=== PATIENT | female | born 1965 | race Caucasian/White ===

== ENCOUNTER → 2017-09-11 | Outpatient (CLI) | payer SELFPAY ==
[2017-09-11 20:44] LABS: ANION GAP 7 MEQ/L (8-16); BLOOD UREA NITROGEN 19 MG/DL (7-18); CALCIUM LEVEL 9.3 MG/DL (8.5-10.1); CARBON DIOXIDE LEVEL 28 MEQ/L (21-32); CHLORIDE LEVEL 105 MEQ/L (98-107); CREATININE FOR GFR 0.88 MG/DL (0.55-1.02); GLOMERULAR FILTRATION RATE > 60.0 (>51); GLUCOSE, FASTING 91 MG/DL (70-105); POTASSIUM SERUM 4.3 MEQ/L (3.5-5.1); SODIUM LEVEL 140 MEQ/L (136-145)
== END ==
LOC: M WUC 16:17
DX: I10 Essential (primary) hypertension (principal)
CPT/HCPCS: 80048

== ENCOUNTER → 2018-12-06 | Outpatient (CLI) | payer BC ==
[2018-12-06 09:42] LABS: BASO # 0.1 10^3/uL (0.0-0.2); BASO % 0.7 % (0.0-1.0); EOS # 0.2 10^3/uL (0.0-0.50); EOS % 3.1 % (0.0-3.0); HEMATOCRIT 40.9 % (36.0-47.0); HEMOGLOBIN 13.8 g/dl (12.0-15.5); LYMPH # 2.8 10^3/uL (1.5-4.5); LYMPH % 39.1 % (24.0-44.0); MEAN CORPUSCULAR HEMOGLOBIN 29.6 pg (27.0-33.0); MEAN CORPUSCULAR HGB CONC 33.7 g/dl (32.0-36.5); MEAN CORPUSCULAR VOLUME 87.8 fl (80.0-96.0); MONO # 0.5 10^3/uL (0.0-0.8); MONO % 7.1 % (0.0-5.0); NEUTROPHILS # 3.5 10^3/uL (1.8-7.7); NEUTROPHILS % 49.7 % (36.0-66.0); PLATELET COUNT, AUTOMATED 342 10^3/uL (150-450); RED BLOOD COUNT 4.66 10^6/uL (4.00-5.40); WHITE BLOOD COUNT 7.1 10^3/uL (4.0-10.0)
[2018-12-06 10:18] LABS: ALBUMIN 4.2 GM/DL (3.2-5.2); ALT/SGPT 33 U/L (12-78); BILIRUBIN,TOTAL 0.5 MG/DL (0.2-1.0); BLOOD UREA NITROGEN 14 MG/DL (7-18); CALCIUM LEVEL 8.9 MG/DL (8.5-10.1); CARBON DIOXIDE LEVEL 28 MEQ/L (21-32); CHLORIDE LEVEL 108 MEQ/L (98-107); CHOLESTEROL LEVEL 259 MG/DL (<200); CHOLESTEROL RISK RATIO 7.194 (<5); CREATININE FOR GFR 0.93 MG/DL (0.55-1.30); GLOMERULAR FILTRATION RATE > 60.0 (>51); GLUCOSE, FASTING 94 MG/DL (70-100); HDL CHOLESTEROL 36 MG/DL (>40); LDL CHOLESTEROL 187 MG/DL (<100); NON-HDL-C 223 MG/DL; SODIUM LEVEL 141 MEQ/L (136-145); TOTAL PROTEIN 7.2 GM/DL (6.4-8.2); TRIGLYCERIDES LEVEL 182 MG/DL (<150)
== END ==
LOC: M WUC 08:21
PROVIDERS: ATTEND Family Medicine
DX: I10 Essential (primary) hypertension (principal)

== ENCOUNTER → 2019-03-06 | Outpatient (CLI) | payer BC ==
--- NOTE | 2019-03-07 01:11 | REP ---
Clinical: thoracic pain. Technique: AP, lateral, and swimmers views. Findings: Alignment and kyphosis is maintained. Vertebral bodies intact. No acute fracture / compression injury or subluxation. Very minimal age-related degenerative changes include subtle endplate sclerosis with minimal disc space narrowing and marginal spurring primarily involving the upper to mid thoracic spine. Impression: Mild age-related degenerative change. Electronically Signed by Silvio Truong MD 03/07/2019 01:03 A
== END ==
LOC: M WUC 11:23
PROVIDERS: ATTEND Physician Assistant
DX: M51.34 Other intervertebral disc degeneration, thoracic region (principal)

== ENCOUNTER → 2019-03-25 | Outpatient (CLI) | payer BC ==
--- NOTE | 2019-03-25 11:08 | REP ---
Diagnostic right breast mammogram: Spot magnification views in the retroareolar area are performed. On the spot magnification views three small nodule like structures are identified. On the ultrasound accompanying the diagnostic mammogram the three small nodular densities are all tiny fluid-filled cysts. In addition there is a dilated retroareolar duct. Impression: BIRADS/ACR category II benign findings. Recommendation: Follow-up screening mammogram in 1 year. A. Negative mammogram / ultrasound reports should not delay biopsy if a dominant or clinically suspicious mass is present. B. Not all breast cancers are identified by ultrasound, mammography or tomosynthesis. C. Adenosis and dense breasts may obscure an underlying neoplasm. Patient letter M1. Electronically Signed by Huy Mabry MD 03/25/2019 10:59 A
--- NOTE | 2019-03-25 17:04 | REP ---
Right breast ultrasound: The study is correlated with the diagnostic spot compression mammogram views of the right breast in this same date. Ultrasonography in the retroareolar area in the right breast identifies: a cyst measuring 3.6 x 3.2 x 3.5 mm, a cyst measuring 3.0 x 1.7 x 2.0 mm . and a cyst measuring 3.6 x 1.6 x 3.4 mm. In addition, retroareolar dilated ducts are identified. No solid nodules or masses are identified. Impression: BIRADS category 1 negative right breast ultrasound. There is no evidence of malignancy. Routine follow-up annual screening mammography is recommended. Electronically Signed by Huy Mabry MD 03/25/2019 04:57 P
== END ==
LOC: M RAD 09:56
PROVIDERS: ATTEND Nurse Practitioner Women's Health
DX: R92.2 Inconclusive mammogram (principal)

== ENCOUNTER → 2019-06-11 | Outpatient (CLI) | payer BC ==
[2019-06-11 10:48] LABS: ALBUMIN 4.1 GM/DL (3.2-5.2); ALT/SGPT 58 U/L (12-78); BILIRUBIN,TOTAL 0.5 MG/DL (0.2-1.0); BLOOD UREA NITROGEN 15 MG/DL (7-18); CALCIUM LEVEL 9.3 MG/DL (8.5-10.1); CARBON DIOXIDE LEVEL 27 MEQ/L (21-32); CHLORIDE LEVEL 107 MEQ/L (98-107); CHOLESTEROL LEVEL 249 MG/DL (<200); CHOLESTEROL RISK RATIO 7.114 (<5); CREATININE FOR GFR 0.83 MG/DL (0.55-1.30); GLOMERULAR FILTRATION RATE > 60.0 (>51); GLUCOSE, FASTING 91 MG/DL (70-100); HDL CHOLESTEROL 35 MG/DL (>40); LDL CHOLESTEROL 155 MG/DL (<100); NON-HDL-C 214 MG/DL; POTASSIUM SERUM 4.2 MEQ/L (3.5-5.1); SODIUM LEVEL 141 MEQ/L (136-145); TOTAL PROTEIN 6.9 GM/DL (6.4-8.2); TRIGLYCERIDES LEVEL 293 MG/DL (<150)
== END ==
LOC: M WUC 08:03
PROVIDERS: ATTEND Family Medicine
DX: E78.5 Hyperlipidemia, unspecified (principal); J02.9 Acute pharyngitis, unspecified

== ENCOUNTER → 2019-07-22 | Outpatient (CLI) | payer BC ==
--- NOTE | 2019-07-22 09:58 | REP ---
Clinical: thoracic back pain. Technique: AP, lateral, and swimmers views. Findings: Alignment and kyphosis is maintained. Vertebral bodies intact. No acute fracture / compression injury or subluxation. No significant degenerative changes. Paravertebral soft tissues are normal. Impression: Normal age-appropriate thoracic spine series. Electronically Signed by Silvio Truong MD 07/22/2019 09:49 A
[2019-07-23 10:04] LABS: HEPATITIS A ANTIBODY IGM NEGATIVE (NEGATIVE); HEPATITIS B CORE ANTIBODY IGM NEGATIVE (NEGATIVE); HEPATITIS B SURFACE ANTIGEN NEGATIVE (NEGATIVE); HEPATITIS C VIRUS ABY INDEX 0.1 INDEX (<0.8)
== END ==
LOC: M WUC 09:04
PROVIDERS: ATTEND Registered Nurse
DX: M54.9 Dorsalgia, unspecified (principal); R74.8 Abnormal levels of other serum enzymes

== ENCOUNTER → 2019-09-16 | Outpatient (REF) | payer BC ==
[2019-09-16 13:23] LABS: AMORPHOUS SEDIMENT SMALL (NEGATIVE); APPEARANCE, URINE TURBID (CLEAR); BACTERIA, URINE AUTO NEGATIVE (NEGATIVE); BILIRUBIN, URINE AUTO NEGATIVE (NEGATIVE); BLOOD, URINE BLOOD 1+ (NEGATIVE); COLOR, URINE AMBER (YELLOW); GLUCOSE, URINE (UA) AUTO NEGATIVE (NEGATIVE); KETONE, URINE AUTO NEGATIVE (NEGATIVE); LEUKOCYTE ESTERASE, URINE AUTO TRACE (NEGATIVE); NITRITE, URINE AUTO NEGATIVE (NEGATIVE); PROTEIN, URINE AUTO NEGATIVE (NEGATIVE); RBC, URINE AUTO 1 /HPF (0-3); SQUAMOUS EPITHELIAL CELL UR AU 1 /HPF (0-6); UROBILINOGEN, URINE AUTO 0.2 mg/dL (0.0-2.0); WBC, URINE AUTO 2 /HPF (0-3)
== END ==
LOC: M LAB REF 12:45
PROVIDERS: ATTEND Registered Nurse
DX: R10.11 Right upper quadrant pain (principal); R94.5 Abnormal results of liver function studies

== ENCOUNTER → 2019-10-31 | Outpatient (CLI) | payer BC ==
--- NOTE | 2019-10-31 14:48 | REP ---
PELVIC SONOGRAPHY: HISTORY: Pelvic pain. The patient status post recent left nephrectomy. Remote prior hysterectomy. FINDINGS: Transabdominal scanning demonstrates smooth bladder mendoza. Uterus is surgically absent.. Neither ovary was visualized transabdominally or transvaginally. Peristalsing bowel loops are seen in the pelvis. No free fluid is noted. IMPRESSION: Negative pelvic sonography post hysterectomy. Neither ovary could be directly visualized.
== END ==
LOC: M WHC 10:14
PROVIDERS: ATTEND Nurse Practitioner Women's Health
DX: R10.2 Pelvic and perineal pain (principal); Z90.711 Acquired absence of uterus with remaining cervical stump

== ENCOUNTER → 2020-02-16 | Outpatient (CLI) | payer BC ==
[~2020-02-16] MED LIST: COLE625TAB PO; CYMB1CAP5 PO; ENAL5TA PO; GABA-845 PO; HYDR25TAB PO
== END ==
LOC: M LABSMTC 10:45
PROVIDERS: ATTEND Anesthesiology
DX: Z03.818 Encounter for observation for suspected exposure to other biological agents ruled out (principal); Z11.59 Encounter for screening for other viral diseases
CPT/HCPCS: C9803; U0003

== ENCOUNTER 2020-02-19 12:53 | Day surgery (SDC) | payer BC ==
[~2020-02-19] VITALS: Ht 157.5 cm; Wt 79.4 kg
[~2020-02-19 12:53] MED LIST changes: -ENAL5TA PO; +ENAL5TAB PO
[2020-02-19] MEDS ORDERED: NS 1,000 ML IV ONE (14:00)
[2020-02-19] MEDS ORDERED: propofoL 200 MG/20 ML VIAL As Ordered ONE (14:28)
[2020-02-19] MEDS ORDERED: LIDOCAINE 2% 100MG/5ML SDV (FOR ANES.) As Ordered ONE (14:28)
--- NOTE | 2020-02-19 15:04 | ROOR ---
Patient Name: Shahida Low Procedure Date: 02/19/2020 2:24 PM Date of : 1965 Age: 54 Room: [facility] Gender: Female Note Status: Finalized Procedure: Colonoscopy Indications: Screening for colon cancer: Family history of colorectal cancer in distant relative(s) 60 or older Providers: Claude Mohr MD Referring MD: Kanwal Sood, [facility], Admin. Requesting Provider: Medicines: Monitored Anesthesia Care Complications: No immediate complications. Procedure: Pre-Anesthesia Assessment: - Prior to the procedure, a History and Physical was performed, and patient medications and allergies were reviewed. The patient is competent. The risks and benefits of the procedure and the sedation options and risks were discussed with the patient. All questions were answered and informed consent was obtained. Patient identification and proposed procedure were verified by the physician, the nurse and the anesthesiologist in the procedure room. Mental Status Examination: alert and oriented. Airway Examination: normal oropharyngeal airway and neck mobility. Respiratory Examination: clear to auscultation. CV Examination: normal. Prophylactic Antibiotics: The patient does not require prophylactic antibiotics. Prior Anticoagulants: The patient has taken no previous anticoagulant or antiplatelet agents. ASA Grade Assessment: II - A patient with mild systemic disease. After reviewing the risks and benefits, the patient was deemed in satisfactory condition to undergo the procedure. The anesthesia plan was to use monitored anesthesia care (MAC). Immediately prior to administration of medications, the patient was re-assessed for adequacy to receive sedatives. The heart rate, respiratory rate, oxygen saturations, blood pressure, adequacy of pulmonary ventilation, and response to care were monitored throughout the procedure. The physical status of the patient was re-assessed after the procedure. The Colonoscope was introduced through the anus and advanced to the terminal ileum, with identification of the appendiceal orifice and IC valve. The colonoscopy was performed without difficulty. The patient tolerated the procedure well. The quality of the bowel preparation was adequate to identify polyps 6 mm and larger in size. The terminal ileum, ileocecal valve, appendiceal orifice, and rectum were photographed. Scope insertion time was 3 minutes. Scope withdrawal time was 10 minutes. The total duration of the procedure was 15 minutes. Findings: The perianal and digital rectal examinations were normal. The terminal ileum appeared normal. A 12 mm polyp was found in the ascending colon. The polyp was multi-lobulated and sessile. The polyp was removed with a hot snare. Resection and retrieval were complete. Verification of patient identification for the specimen was done by the physician and nurse using the patient's name, date and medical record number. Estimated blood loss was minimal. Multiple small and large-mouthed diverticula were found in the sigmoid colon. There was no evidence of diverticular bleeding. Non-bleeding external and internal hemorrhoids were found during retroflexion. The hemorrhoids were medium-sized. Impression: - The examined portion of the ileum was normal. - One 12 mm polyp in the ascending colon, removed with a hot snare. Resected and retrieved. - Moderate diverticulosis in the sigmoid colon. There was no evidence of diverticular bleeding. - Non-bleeding external and internal hemorrhoids. Recommendation: - Patient has a contact number available for emergencies. The signs and symptoms of potential delayed complications were discussed with the patient. Return to normal activities tomorrow. Written discharge instructions were provided to the patient. - High fiber diet. - Continue present medications. - Await pathology results. - Repeat colonoscopy in 3 - 5 years for surveillance based on pathology results. - Telephone GI clinic for pathology results in 2 weeks. - Return to primary care physician. Claude Mohr MD Claude Mohr MD 02/19/2020 3:03:22 PM Electronically signed by Claude oMhr MD Number of Addenda: 0 Note Initiated On: 02/19/2020 2:24 PM Estimated Blood Loss: Estimated blood loss was minimal.
[2020-02-19 15:15] VITALS: BP 144/94
== END 2020-02-19 14:26 | disposition home or self-care (01) ==
LOC: M OPP 12:53
PROVIDERS: ATTEND Internal Medicine Gastroenterology
DX: Z12.11 Encounter for screening for malignant neoplasm of colon (principal); Z80.0 Family history of malignant neoplasm of digestive organs; D12.2 Benign neoplasm of ascending colon; K64.8 Other hemorrhoids; K57.30 Diverticulosis of large intestine without perforation or abscess without bleeding; Z79.899 Other long term (current) drug therapy; Z85.528 Personal history of other malignant neoplasm of kidney

== ENCOUNTER → 2020-03-16 | Outpatient (CLI) | payer BC ==
[~2020-03-16] MED LIST changes: +ENAL5TA PO; -ENAL5TAB PO
--- NOTE | 2020-03-16 09:00 | REP ---
Clinical: Renal malignancy. Technique: PA and lateral. Comparison: None. Findings: Mediastinum and cardiac silhouette are normal. Lung lucas demonstrate chronic-appearing interstitial changes primarily involving the bilateral bases. No discrete focal consolidation, effusion, or pneumothorax. Skeletal structures are intact. Impression: No focal consolidation. Electronically Signed by Silvio Truong MD 03/16/2020 08:52 A
== END ==
LOC: M WUC 08:22
PROVIDERS: ATTEND Urology
DX: C64.2 Malignant neoplasm of left kidney, except renal pelvis (principal)

== ENCOUNTER → 2020-04-02 | Outpatient (REF) | payer BC ==
[2020-05-03 10:59] LABS: DRVV SCREEN 53.1 SEC; PTT LUPUS TYPE ANTICOAG SCREEN 1.3 (0-1.2)
[2020-05-03 11:00] LABS: DRVV CONFIRM 41.7 SEC; LUPUS CONFIRM RATIO 1.1; NORMALIZED RATIO 1.18 (0.00-1.20)
[2020-05-19 06:37] LABS: ALBUMIN 4.2 GM/DL (3.2-5.2); ALT/SGPT 82 U/L (12-78); BILIRUBIN,TOTAL 0.5 MG/DL (0.2-1.0); BLOOD UREA NITROGEN 26 MG/DL (7-18); CALCIUM LEVEL 9.3 MG/DL (8.5-10.1); CARBON DIOXIDE LEVEL 29 MEQ/L (21-32); CHLORIDE LEVEL 107 MEQ/L (98-107); CREATININE FOR GFR 1.37 MG/DL (0.55-1.30); GLOMERULAR FILTRATION RATE 42.8 (>51); GLUCOSE, FASTING 89 MG/DL (70-100); POTASSIUM SERUM 3.8 MEQ/L (3.5-5.1); RHEUMATOID FACTOR QUANT < 10.0 IU/ML (<15.0); SODIUM LEVEL 141 MEQ/L (136-145); TOTAL PROTEIN 7.6 GM/DL (6.4-8.2)
[2020-05-31 06:50] LABS: ANTINUCLEAR ANTIBODIES DIRECT See Separate Report
== END ==
LOC: M LABWUC 13:45
PROVIDERS: ATTEND Psychiatry & Neurology Neurology
DX: M54.14 Radiculopathy, thoracic region (principal)

== ENCOUNTER → 2020-04-19 | Outpatient (CLI) | payer BC ==
[~2020-04-19] MED LIST changes: +E-Z-GAS II EFFERVESCENT PACKET (SODIUM BICARB./CITRIC ACID/SIMETHICONE) As Ordered ONE; +E-Z-HD 98% w/w 340GM SUSP BTL As Ordered ONE; +E-Z-PAQUE 96% w/w SUSP 176GM BTL As Ordered ONE
--- NOTE | 2020-05-19 08:49 | REP ---
ESOPHAGRAM AIR CONTRAST The procedure was performed under the direct supervision of Dr. Roldan. The images were reviewed with Dr. Roldan. A single view PA chest x-ray is submitted as a row boss hoeing film. The superior mediastinal structures are midline. The heart size is within normal limits. There is bibasilar linear fibrosis. Liquid barium and gas-producing granules were given in the erect position, as well as liquid barium in the prone oblique positions in order to perform a double-contrast esophagram examination. The oral and pharyngeal stages of deglutition are unremarkable. During esophageal transport, there are tertiary waves demonstrated. There is no esophagitis, stricture, mucosal ring, or hiatal hernia. There is gastroesophageal reflux demonstrated to the level of the vickey. IMPRESSION: * Tertiary waves. * There is gastroesophageal reflux demonstrated to the level of the vickey. 0.6 minutes of fluoroscopy time was utilized for this procedure. [facility]
== END ==
LOC: M RAD 07:00
PROVIDERS: ATTEND Specialist
DX: K21.9 Gastro-esophageal reflux disease without esophagitis (principal)

== ENCOUNTER → 2020-04-22 | Outpatient (CLI) | payer BC ==
[~2020-04-22] MED LIST changes: -E-Z-GAS II EFFERVESCENT PACKET (SODIUM BICARB./CITRIC ACID/SIMETHICONE) As Ordered ONE; -E-Z-HD 98% w/w 340GM SUSP BTL As Ordered ONE; -E-Z-PAQUE 96% w/w SUSP 176GM BTL As Ordered ONE
--- NOTE | 2020-04-23 11:56 | REPMRS ---
Patient History The patient states she had a clinical breast exam in 03/2020. Patient has history of kidney cancer at age 54. Family history of prostate cancer at age 74 in father, colorectal cancer at age 70 in maternal grandmother. Benign stereotatic breast biopsy of the right breast, 2008. No Hormone Replacement Therapy Digital Woman Screen Mammo: April 22, 2020 - Exam #: [id number] Bilateral CC and MLO view(s) were taken. Technologist: Kinjal Lozano, Technologist Prior study comparison: March 25, 2019, right breast digital mammo diagnostic unilateral, performed at [facility]. March 19, 2019, bilateral digital woman screen mammo performed at [facility]. June 24, 2014, digital woman screen mammo performed at [facility]. June 12, 2013, digital woman screen mammo performed at [facility]. FINDINGS: The breast tissue is almost entirely fat. The Volpara volumetric breast density category is: A. Previously noted nodular densities are unchanged. There is a needle biopsy marker clip in the right breast. There has been no change in the appearance of the mammogram from the prior studies. There is no interval development of dominant mass, architectural distortion, or grouped microcalcification typical of malignancy. 3-D tomosynthesis shows no additional findings. Assessment: BI-RADS/ACR category 2 mammogram. Benign Findings. Recommendation Routine screening mammogram of both breasts in 1 year (for women over age 40). This patient's Lifetime Breast Cancer RIsk is estimated at 8.2 %. This mammogram was interpreted with the aid of an FDA-approved computer-aided dectection system. Electronically Signed By: Dann Roldan MD 04/23/20 0456
== END ==
LOC: M WHC 10:36
PROVIDERS: ATTEND Nurse Practitioner Women's Health
DX: Z12.31 Encounter for screening mammogram for malignant neoplasm of breast (principal)

== ENCOUNTER → 2020-05-17 | Outpatient (CLI) | payer BC | LOC: M PAIN 08:17 | PROVIDERS: ATTEND Nurse Practitioner Family | DX: M47.815 Spondylosis without myelopathy or radiculopathy, thoracolumbar region (principal) ==

== ENCOUNTER → 2020-05-22 | Outpatient (CLI) | payer BC | LOC: M LABSMTC 08:09 | PROVIDERS: ATTEND Anesthesiology | DX: Z20.828 Contact with and (suspected) exposure to other viral communicable diseases (principal) | CPT/HCPCS: C9803; U0003 ==

== ENCOUNTER → 2020-05-27 | Outpatient (CLI) | payer BC ==
[~2020-05-27] MED LIST changes: +BUPIVACAINE HCL 0.25% 30ML VIAL As Ordered ONE; +ISOVUE-M 300 61% 15ML VIAL As Ordered ONE; +LIDOCAINE 1% SDV 30ML VIAL As Ordered ONE; +NORCO, ANEXSIA 5/325MG TABLET (HYDROcodone/ACETAMINOPHEN) As Ordered ONE; +TRIAMCINOLONE ACETONIDE SUSP 40 MG/ML VIAL (J3301) As Ordered ONE; +diazePAM 5 MG TAB As Ordered ONE
--- NOTE | 2020-05-27 16:00 | REPVR ---
PROCEDURE INFORMATION: Exam: XR Chest, 2 Views Exam date and time: 05/27/2020 3:39 PM Age: 55 years old Clinical indication: Chest pain; Additional info: R/O pneumothorax a-p/lateral inspiratory/expiratory after thoracic epidural injection TECHNIQUE: Imaging protocol: XR of the chest Views: 2 views. COMPARISON: CR CHEST 2 VIEW 03/16/2020 8:37 AM FINDINGS: Lungs: Stable linear streaking is mild involving the right base. The left lung is clear. Pleural space: Unremarkable. No pleural effusion. No pneumothorax. Heart/Mediastinum: Unremarkable. No cardiomegaly. Bones/joints: Unremarkable. IMPRESSION: No acute findings. Electronically signed by: Mirza Benson On 05/27/2020 16:00:28 PM
--- NOTE | 2020-05-27 17:06 | ECWPNPC ---
PATIENT NAME: SISSY PIERRE : 1965 GENDER: FEMALE VISIT DATE: 05/27/2020 DISCHARGE DATE: 05/27/201645 VISIT LOCKED DATE TIME: PHYSICIAN: ALEJANDRO HELM MD RESOURCE: ALEJANDRO HELM MD REASON FOR APPOINTMENT 1. BILATERAL THERA THORACIC FACET BLK T9-T10,T10-T11 HISTORY OF PRESENT ILLNESS GENERAL: -. FALL RISK SCREENING: SCREENING :NO FALLS REPORTED IN THE LAST YEAR PAIN SCREENING: PATIENT HAS A COMPLAINT OF ACUTE OR CHRONIC PAIN :YES LOCATION OF PAIN:MID BACK INTENSITY OF PAIN (SCALE OF 1 TO 10):6 WHAT DOES YOUR PAIN FEEL LIKE:ACHING, INTERMITTENT DURATION:INTERMITTENT NURSING NOTE: -. PAIN CENTER INTAKE QUESTIONS: DO YOU HAVE A HISTORY OF MRSA? :NO DO YOU TAKE A BLOOD THINNERS? :NO DO YOU HAVE ANY BLEEDING DISORDERS? :NO ANY NEW NUMBNESS OR WEAKNESS IN YOUR LEGS OR ARMS? :NO ANY PACEMAKER,DEFIBRILLATOR, OR DORSAL COLUMN STIMULATOR? :NO DO YOU HAVE ANY RASHES OR OPEN SORES? :NO ARE YOU ALLERGIC TO IV DYE? :NO ARE YOU DIABETIC? :NO ANY NEW PROBLEMS WITH YOUR MEDICATIONS? :NO HAVE YOU RECEIVED A VACCINE IN THE PAST 30 DAYS? :YES IF SO WHAT VACCINE AND WHEN? FLU VACCINE 1 WEEK AGO DO YOU PLAN TO RECEIVE A VACCINE IN THE NEXT 21 DAYS? :NO DO YOU TAKE ANY IMMUNOSUPPRESSIVE MEDICATIONS? :NO ANY HISTORY OF SEIZURES? :NO ANY HISTORY OF CARDIAC ISSUES OR EVENTS? :NO DO YOU HAVE SLEEP APNEA? :NO ANY RECENT HEAD INJURY? :NO DO YOU HAVE ANY NEW INFECTIONS? :NO IS THERE A CHANCE YOU COULD BE ? :NO ARE YOU BREAST FEEDING? :NO WHEN DID YOU LAST EAT? : -05/26/20 BEFORE MIDNIGHT WHEN DID YOU LAST DRINK? : -05/27/20 1100 WHAT DID YOU LAST DRINK? : -WATER NAME OF PERSON DRIVING YOU HOME? : -MICHAEL (DAUGHTER) DO YOU HAVE ANY OTHER QUESTIONS OR CONCERNS? : - CURRENT MEDICATIONS TAKING COLESEVELAM HCL 625 MG TABLET TAKE 3 TABLETS BY MOUTH TWICE DAILY ORAL , NOTES: 05/27/20 0730 TAKING FISH OIL 1200 MG CAPSULE 1 CAPSULE ORALLY ONCE A DAY, NOTES: 05/27/20 0730 TAKING HYDROCHLOROTHIAZIDE 25 MG TABLET TAKE 1 TABLET BY MOUTH ONCE DAILY ORAL , NOTES: 05/27/20729 TAKING ENALAPRIL MALEATE 5 MG TABLET TAKE 1 TABLET BY MOUTH ONCE DAILY ORAL , NOTES: 05/27/20729 TAKING GABAPENTIN 300 MG CAPSULE 1 CAPSULE ORALLY THREE TIME A DAY, NOTES: 05/27/20729 TAKING MULTIVITAMIN ADULT - TABLET DIRECTED ORALLY DAILY, NOTES: 05/26/201929 TAKING BENADRYL 25 MG TABLET 2 TABLETS ORALLY EVERY BEDTIME, NOTES: 05/26/201929 NOT-TAKING CYCLOBENZAPRINE HCL 10 MG TABLET TAKE 1 TABLET BY MOUTH THREE TIMES DAILY NEEDED ORAL NOT-TAKING CALCIUM 600+D 600-400 MG-UNIT TABLET 1 TABLET WITH FOOD ORALLY ONCE A DAY NOT-TAKING ZYRTEC ALLERGY 10 MG TABLET 1 TABLET ORALLY ONCE A DAY NOT-TAKING ATORVASTATIN CALCIUM 40 MG TABLET TAKE 1 TABLET BY MOUTH ONCE DAILY ORAL NOT-TAKING ATENOLOL 50 50MG TABLET 1 1/2 TABLET ORAL ONCE A DAY NOT-TAKING DULOXETINE HCL 30 MG CAPSULE DELAYED RELEASE PARTICLES TAKE 1 CAPSULE BY MOUTH ONCE DAILY ORAL UNKNOWN CLARITIN 10 MG TABLET 2 TABLETS ORALLY ONCE A DAY UNKNOWN TRAMADOL HCL 50 MG TABLET (SCHEDULE IV DRUG) TAKE 1 TABLET BY MOUTH EVERY 6 HOURS NEEDED DIRECTED . DO NOT EXCEED 4 PER 24 HOURS ORAL MEDICATION LIST REVIEWED AND RECONCILED WITH THE PATIENT PAST MEDICAL HISTORY HYPERTENSION HYPERLIPIDEMIA STAGE THREE KIDNEY CANCER, LEFT, 09/2019, RENAL CELL CARCINOMA ALLERGIES N.K.D.A. SURGICAL HISTORY CHOLECYSTECTOMY HYSTERECTOMY, KEPT OVARIES 2001 RIGHT BREAST BIOPSY LEFT NEPHRECTOMY, STAGE 3 RENAL CANCER FAMILY HISTORY FATHER: ALIVE, IDDM, HX HI, CLL MOTHER: ALIVE, ASTHMA. NO OSTEOPOROSIS, NO FX 2 SISTER(S) - HEALTHY. 1DAUGHTER(S) - HEALTHY. DENIES FAMILY HX OF BREAST, COLON OR OVARIAN CANCER. SOCIAL HISTORY GENERAL: TOBACCO USE ARE YOU A:NONSMOKER LATEX QUESTIONNAIRE LATEX ALLERGY : HAVE YOU EVER DEVELOPED ANY TYPE OF REACTION AFTER HANDLING LATEX PRODUCTS SUCH RUBBER GLOVES, CONDOMS, DIAPHRAGMS, BALLOONS, SOCKS, OR UNDERWEAR?NO LATEX ALLERGY : HAVE YOU EVER DEVELOPED ANY TYPE OF REACTION DURING OR AFTER DENTAL APPOINTMENT, VAGINAL/RECTAL EXAMINATION, SURGICAL PROCEDURE, OR ANY OTHER EXPOSURE?NO DATE ASKED : 10/31/2019 LATEX RISK : HAVE YOU EVER HAD ANY DIFFICULTY BREATHING OR HIVES AFTER EATING OR HANDLING ANY FRUITS, OR VEGETABLES; SUCH KIWI, BANANAS, STONE FRUITS, OR CHESTNUTSNO LATEX RISK : DO YOU HAVE A PREVIOUS PERSONAL HISTORY OF MORE THAN NINE SURGERIES, SPINA BIFIDA, OR REPEATED CATHERIZATIONS? NO LATEX RISK : ARE YOU FREQUENTLY EXPOSED TO LATEX PRODUCTS IN YOUR OCCUPATION?NO BMI CARE GOAL FOLLOW-UP ABOVE NORMAL BMI FOLLOW-UPWEIGHT MONITORING RECREATIONAL DRUG USE DENIES. CAFFEINE RARELY. SEXUAL HX HAD SEX IN THE LAST 12 MONTHS (VAGINAL, ORAL, OR ANAL)?YES WITHMEN ONLY LMP:HYSTER HAVE YOU EVER HAD AN STD?NO HIV / HEP-C SCREENING HIV TEST OFFERED TO PATIENT:YES DATE OFFERED:03/19/2019 TEST ACCEPTED:NO REASON:PATIENT DECLINED BROCHURE PROVIDED TO PATIENTNO LANGUAGE LANGUAGES SPOKEN:GUAMANIAN LEARNING BARRIERS / SPECIAL NEEDS CHANGE FROM LAST VISIT?NO 10/31/2019 BARRIERS TO LEARNING?NO HEARING IMPAIRED?NO VISION IMPAIRED?YES COGNITIVELY IMPAIRED?NO :CORRECTIVE LENSES READINESS TO LEARN?YES LEARNING PREFERENCES?NO LEARNING CAPABILITIES PRESENT?YES EMOTIONAL BARRIERS?NO SPECIAL DEVICES?NO DOMESTIC VIOLENCE DENIES. OCCUPATION: [employer]. DIET: REGULAR. EXERCISE: CARDIO 3 TIMES A WEEK. MARITAL STATUS: SINGLE. OTHERS AT HOME: MOTHER,FIANCE. HOSPITALIZATION/MAJOR DIAGNOSTIC PROCEDURE CHILDBIRTH SURGERIES VITAL SIGNS WT 174.2 LBS, HT 62 IN, BMI 31.86 INDEX, BP 147/93 MM HG, HR 80 /MIN, RR 18 /MIN, TEMP 97.2 F, OXYGEN SAT % 93%, NA INITIALS AW 1250, REVIEWED BY: LS. EXAMINATION GENERAL EXAMINATION: THE PATIENT IS ALERT, ORIENTED TIMES THREE AND COOPERATIVE. HEART SHOWS REGULAR RHYTHM, NO MURMURS AND NO GALLOPS. LUNGS ARE CLEAR TO AUSCULTATION. 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 ALEJANDRO HELM ART HANDLER NONE ANESTHESIA LOCAL PRE PROCEDURE NOTE THE PATIENT WITH HISTORY OF CHRONIC THORACIC PAIN. I EVALUATED THE PATIENT AND REVIEWED THE CHART. I WENT OVER THE RISKS, ALTERNATIVES, AND BENEFITS ASSOCIATED WITH THIS PROCEDURE. I DISCUSSED THAT THE USE OF STEROIDS MAY CONTRIBUTE TO IMMUNOSUPPRESSION OF THE PATIENT'S BODY AGAINST INFECTIONS SUCH COVID-19. THE PATIENT IS AWARE OF THE POTENTIAL COMPLICATIONS ASSOCIATED WITH THIS VIRUS, INCLUDING, BUT NOT LIMITED TO, . THE PATIENT WOULD LIKE TO PROCEED AND GAVE CONSENT TO PERFORM THE PROCEDURE. THE PATIENT DENIES UNEXPLAINABLE WEIGHT LOSS, FEVER, CHILLS, OR NEW CHANGES IN URINARY OR BOWEL CONTROL. THE PATIENT IS COVID-19 NEGATIVE DESCRIPTION OF PROCEDURE THE PATIENT WAS BROUGHT TO THE PROCEDURE ROOM AND PLACED IN THE PRONE POSITION. THE THORACIC AREA WAS CLEANED WITH CHLORAPREP SOLUTION AND DRAPED ASEPTICALLY. THE PROCEDURE WAS DONE UNDER STERILE CONDITIONS. I CHECKED LATERALITY AND THE LEVEL WHERE THE PROCEDURE WAS GOING TO BE PERFORMED WITH THE PATIENT AND THE SUPPORTING STAFF AT THE MOMENT OF THE TIME OUT IN THE PROCEDURE ROOM. UNDER FLUOROSCOPIC GUIDANCE, THE TARGET POINT WAS SELECTED AT THE RIGHT AND LEFT T9-T10 AND RIGHT AND LEFT T10-T11 THORACIC FACET. TARGET POINT WAS SELECTED AFTER LATERAL ROTATION AND TILT OF THE MAGNIFIER OF THE C-ARM. I CONFIRMED AGAIN WITH EVERYONE IN THE ROOM THE LATERALITY OF THE TARGET. LIDOCAINE 0.5% WAS USED TO NUMB THE SKIN AND THE SUBCUTANEOUS TISSUE BELOW IT. SPINAL NEEDLES, 22-GAUGE, WERE ADVANCED UNDER FLUOROSCOPIC GUIDANCE AND FOLLOWING PATIENT FEEDBACK UNTIL THE TARGETS WERE TOUCHED. THE POSITION OF THE NEEDLES WAS VERIFIED WITH MULTIPLE X-RAY VIEWS. AFTER PROPER POSITION OF THE NEEDLES WAS ACHIEVED, ISOVUE-M DYE 30%, 0.1 ML, WAS INJECTED SHOWING ADEQUATE SPREAD OF THE DYE. THEN A SOLUTION OF 0.9 ML OF BUPIVACAINE 0.125% OF KENALOG 20 MG WAS INJECTED AT EACH SITE. THE MEDICATIONS WERE VERIFIED WITH THE NURSE. THERE WAS NO EVIDENCE OF BLOOD, PARESTHESIA OR CEREBROSPINAL FLUID DURING THE PROCEDURE. THE PATIENT WAS SENT TO THE RECOVERY ROOM. THE PATIENT WAS MOVING THE EXTREMITIES AND DOING WELL. THERE WERE NO COMPLICATION DURING THE PROCEDURE. EBL LESS THAN 5 ML. FLUOROSCOPY TIME WAS 31 SECONDS POST PROCEDURE NOTE PATIENT WAS SENT DOWN FOR STAT CHEST X-RAY PA AND LATERAL VIEWS ON INSPIRATION AND EXPIRATION. THE PROCEDURE DONE WAS DISCUSSED WITH THE PATIENT. THE PATIENT WILL BE SEEN IN A FOLLOW UP IN THE NEXT FEW WEEKS. I AM LOOKING FOR LONG LASTING PAIN RELIEF FOR THE PATIENT WITH THIS INTERVENTION. INSTRUCTIONS WERE GIVEN, QUESTIONS WERE ANSWERED, AND THE PATIENT EXPRESSED UNDERSTANDING AND AGREES WITH THE PLAN. I, GILES FELICIANO, DOCUMENTED THE ABOVE INFORMATION ACTING A SCRIBE FOR DR. HELM. I HAVE REVIEWED THE ABOVE DOCUMENT, WRITTEN BY GILES FELICIANO, ERP ENGINEER, AND I VERIFY THAT IT IS ACCURATE PROCEDURE CODES 06352 INJ PARAVERT F JNT C/T 1 LEV, MODIFIERS: 50 24087 INJ PARAVERT F JNT C/T 2 LEV, MODIFIERS: 50 DISPOSITION & COMMUNICATION FOLLOW UP FOLLOW UP WITH WINDLACE MACHINE OPERATOR (REASON: POST THERAPEUTIC FACET BLOCK BILATERAL T9-T10, T10-T11) ELECTRONICALLY SIGNED BY ALEJANDRO HELM MD, MD ON 05/27/2020 AT 04:47 PM EDT DISCLAIMER : THIS IS A VISIT SUMMARY EXTRACTED FROM THE [employer] CHART. IT IS NOT A COPY OF THE [employer] PROGRESS NOTE. MTDD
--- NOTE | 2020-06-02 11:30 | REP ---
C-ARM VIEWS THORACIC SPINE HISTORY: Pain. TECHNIQUE: Three C-arm views of the thoracic spine are performed during thoracic facet injections bilaterally performed by Dr. Joseph. FINDINGS: [place] are seen along the margins of the thoracic spine bilaterally and a small amount of contrast is injected. FLUROSCOPY TIME: 31 seconds utilized. MTDD
== END ==
LOC: M PAIN 13:00
PROVIDERS: ATTEND Anesthesiology
DX: M47.814 Spondylosis without myelopathy or radiculopathy, thoracic region (principal); I10 Essential (primary) hypertension; E78.5 Hyperlipidemia, unspecified; Z79.899 Other long term (current) drug therapy
CPT/HCPCS: 64490; 64491; 71046; J3301; Q9967

== ENCOUNTER → 2020-06-15 | Outpatient (CLI) | payer BC ==
[~2020-06-15] MED LIST changes: -BUPIVACAINE HCL 0.25% 30ML VIAL As Ordered ONE; -ISOVUE-M 300 61% 15ML VIAL As Ordered ONE; -LIDOCAINE 1% SDV 30ML VIAL As Ordered ONE; -NORCO, ANEXSIA 5/325MG TABLET (HYDROcodone/ACETAMINOPHEN) As Ordered ONE; -TRIAMCINOLONE ACETONIDE SUSP 40 MG/ML VIAL (J3301) As Ordered ONE; -diazePAM 5 MG TAB As Ordered ONE
--- NOTE | 2020-06-15 10:33 | ECWPNPC ---
PATIENT NAME: SISSY PIERRE : 1965 GENDER: FEMALE VISIT DATE: 06/15/2020 DISCHARGE DATE: 06/15/20 1007 VISIT LOCKED DATE TIME: PHYSICIAN: LICHA TREJO RESOURCE: LICHA TREJO REASON FOR APPOINTMENT 1. SPINE HISTORY OF PRESENT ILLNESS GENERAL: HERE FOR POST PROCEDURE FOLLOW-UP. HAD BILATERAL T9-10, T10-11 THORACIC THERAPEUTIC FACET BLOCK ON 05/27/2020. REPORTING 2 DAYS OF IMPROVEMENT IN PAIN AND THEN PAIN ABRUPTLY RETURNED TO BASELINE. RECENTLY STARTED ON LYRICA 50 MG 3 TIMES A DAY WITH [facility] NEUR[facility]. PATIENT FEELS THOUGH THIS IS HELPFUL. DISCUSSED MEDICATION AND TREATMENT OPTIONS. -. FALL RISK SCREENING: SCREENING :NO FALLS REPORTED IN THE LAST YEAR PAIN SCREENING: PATIENT HAS A COMPLAINT OF ACUTE OR CHRONIC PAIN :YES LOCATION OF PAIN:UPPER BACK INTENSITY OF PAIN (SCALE OF 1 TO 10):2 WHAT DOES YOUR PAIN FEEL LIKE:ACHING DURATION:INTERMITTENT PAIN IS INCREASED BY:ACTIVITIES PAIN IS DECREASED BY:OTHERS HEAT TREATMENT/MEDICATIONS USED TO MANAGE PAIN:NSAIDS LEVEL OF RELIEF FROM PAIN TREATMENTS IN THE PAST:50% NURSING NOTE: -. PAIN CENTER INTAKE QUESTIONS: DO YOU HAVE A HISTORY OF MRSA? :NO DO YOU TAKE A BLOOD THINNERS? :NO DO YOU HAVE ANY BLEEDING DISORDERS? :NO ANY NEW NUMBNESS OR WEAKNESS IN YOUR LEGS OR ARMS? :NO ANY PACEMAKER,DEFIBRILLATOR, OR DORSAL COLUMN STIMULATOR? :NO DO YOU HAVE ANY RASHES OR OPEN SORES? :NO ARE YOU ALLERGIC TO IV DYE? :NO ARE YOU DIABETIC? :NO ANY NEW PROBLEMS WITH YOUR MEDICATIONS? :NO HAVE YOU RECEIVED A VACCINE IN THE PAST 30 DAYS? :YES IF SO WHAT VACCINE AND WHEN? FLU VACCINE 30 DAYS AGO DO YOU PLAN TO RECEIVE A VACCINE IN THE NEXT 21 DAYS? :NO DO YOU NEED ANY PRESCRIPTION? :NO DO YOU TAKE ANY IMMUNOSUPPRESSIVE MEDICATIONS? :NO IS THERE A CHANCE YOU COULD BE ? :NO ARE YOU BREAST FEEDING? :NO CURRENT MEDICATIONS TAKING COLESEVELAM HCL 625 MG TABLET TAKE 3 TABLETS BY MOUTH TWICE DAILY ORAL TAKING HYDROCHLOROTHIAZIDE 25 MG TABLET TAKE 1 TABLET BY MOUTH ONCE DAILY ORAL TAKING ENALAPRIL MALEATE 5 MG TABLET TAKE 1 TABLET BY MOUTH ONCE DAILY ORAL TAKING GABAPENTIN 300 MG CAPSULE 1 CAPSULE ORALLY THREE TIME A DAY TAKING MULTIVITAMIN ADULT - TABLET DIRECTED ORALLY DAILY TAKING BENADRYL 25 MG TABLET 2 TABLETS ORALLY EVERY BEDTIME TAKING LYRICA 50 MG CAPSULE 1 CAPSULE ORALLY THREE TIMES DAILY NOT-TAKING FISH OIL 1200 MG CAPSULE 1 CAPSULE ORALLY ONCE A DAY NOT-TAKING CYCLOBENZAPRINE HCL 10 MG TABLET TAKE 1 TABLET BY MOUTH THREE TIMES DAILY NEEDED ORAL NOT-TAKING CALCIUM 600+D 600-400 MG-UNIT TABLET 1 TABLET WITH FOOD ORALLY ONCE A DAY NOT-TAKING ZYRTEC ALLERGY 10 MG TABLET 1 TABLET ORALLY ONCE A DAY NOT-TAKING ATORVASTATIN CALCIUM 40 MG TABLET TAKE 1 TABLET BY MOUTH ONCE DAILY ORAL NOT-TAKING ATENOLOL 50 50MG TABLET 1 1/2 TABLET ORAL ONCE A DAY NOT-TAKING DULOXETINE HCL 30 MG CAPSULE DELAYED RELEASE PARTICLES TAKE 1 CAPSULE BY MOUTH ONCE DAILY ORAL NOT-TAKING CLARITIN 10 MG TABLET 2 TABLETS ORALLY ONCE A DAY NOT-TAKING TRAMADOL HCL 50 MG TABLET (SCHEDULE IV DRUG) TAKE 1 TABLET BY MOUTH EVERY 6 HOURS NEEDED DIRECTED . DO NOT EXCEED 4 PER 24 HOURS ORAL MEDICATION LIST REVIEWED AND RECONCILED WITH THE PATIENT PAST MEDICAL HISTORY HYPERTENSION HYPERLIPIDEMIA STAGE THREE KIDNEY CANCER, LEFT, 09/2019, RENAL CELL CARCINOMA ALLERGIES N.K.D.A. SURGICAL HISTORY CHOLECYSTECTOMY HYSTERECTOMY, KEPT OVARIES 2001 RIGHT BREAST BIOPSY LEFT NEPHRECTOMY, STAGE 3 RENAL CANCER FAMILY HISTORY FATHER: ALIVE, IDDM, HX [place], CLL MOTHER: ALIVE, ASTHMA. NO OSTEOPOROSIS, NO FX 2 SISTER(S) - HEALTHY. 1DAUGHTER(S) - HEALTHY. DENIES FAMILY HX OF BREAST, COLON OR OVARIAN CANCER. SOCIAL HISTORY GENERAL: TOBACCO USE ARE YOU A:NONSMOKER LATEX QUESTIONNAIRE LATEX ALLERGY : HAVE YOU EVER DEVELOPED ANY TYPE OF REACTION AFTER HANDLING LATEX PRODUCTS SUCH RUBBER GLOVES, CONDOMS, DIAPHRAGMS, BALLOONS, SOCKS, OR UNDERWEAR?NO LATEX ALLERGY : HAVE YOU EVER DEVELOPED ANY TYPE OF REACTION DURING OR AFTER DENTAL APPOINTMENT, VAGINAL/RECTAL EXAMINATION, SURGICAL PROCEDURE, OR ANY OTHER EXPOSURE?NO LATEX RISK : HAVE YOU EVER HAD ANY DIFFICULTY BREATHING OR HIVES AFTER EATING OR HANDLING ANY FRUITS, OR VEGETABLES; SUCH KIWI, BANANAS, STONE FRUITS, OR CHESTNUTSNO LATEX RISK : DO YOU HAVE A PREVIOUS PERSONAL HISTORY OF MORE THAN NINE SURGERIES, SPINA BIFIDA, OR REPEATED CATHERIZATIONS? NO LATEX RISK : ARE YOU FREQUENTLY EXPOSED TO LATEX PRODUCTS IN YOUR OCCUPATION?NO DATE ASKED : 10/31/2019 BMI CARE GOAL FOLLOW-UP ABOVE NORMAL BMI FOLLOW-UPWEIGHT MONITORING ALCOHOL SCREENING DID YOU HAVE A DRINK CONTAINING ALCOHOL IN THE PAST YEAR?NO POINTS0 INTERPRETATIONNEGATIVE RECREATIONAL DRUG USE DENIES. CAFFEINE RARELY. SEXUAL HX HAD SEX IN THE LAST 12 MONTHS (VAGINAL, ORAL, OR ANAL)?YES WITHMEN ONLY LMP:HYSTER HAVE YOU EVER HAD AN STD?NO HIV / HEP-C SCREENING HIV TEST OFFERED TO PATIENT:YES DATE OFFERED:03/19/2019 TEST ACCEPTED:NO REASON:PATIENT DECLINED BROCHURE PROVIDED TO PATIENTNO LANGUAGE LANGUAGES SPOKEN:TELUGU LEARNING BARRIERS / SPECIAL NEEDS CHANGE FROM LAST VISIT?NO 10/31/2019 BARRIERS TO LEARNING?NO HEARING IMPAIRED?NO VISION IMPAIRED?YES COGNITIVELY IMPAIRED?NO :CORRECTIVE LENSES READINESS TO LEARN?YES LEARNING PREFERENCES?NO LEARNING CAPABILITIES PRESENT?YES EMOTIONAL BARRIERS?NO SPECIAL DEVICES?NO DOMESTIC VIOLENCE DENIES. OCCUPATION: [employer]. DIET: REGULAR. EXERCISE: CARDIO 3 TIMES A WEEK. MARITAL STATUS: SINGLE. OTHERS AT HOME: MOTHER,FIANCE. PAIN CLINIC PFS, CLERGY, PUBLIC HEALTH REFERRALS HAS THE PATIENT BEEN EDUCATED REGARDING HIS/HER PLAN OF CARE?YES HAS THE PATIENT BEEN EDUCATED REGARDING PAIN, THE RISK FOR PAIN, THE IMPORTANCE OF EFFECTIVE PAIN MANAGEMENT, AND THE PAIN ASSESSMENT PROCESS?YES ADVANCE DIRECTIVE ADVANCE DIRECTIVE DISCUSSED WITH PATIENT:YES DECLINED AND DECLINED PAPERWORK HOSPITALIZATION/MAJOR DIAGNOSTIC PROCEDURE CHILDBIRTH SURGERIES REVIEW OF SYSTEMS CONSTITUTIONAL: ANY RECENT FEVER NO . CHILLS NO . WEIGHT CHANGE OF UNKNOWN REASONS NO . GASTROENTEROLOGY: NEW UNEXPLAINABLE CHANGES IN BOWEL CONTROL NO . CONSTIPATION NO . GENITOURINARY: ANY NEW CHANGE IN BLADDER CONTROL? NO . NEUROLOGY: NEW ONSET DIZZINESS OR NEUROLOGICAL CHANGES NOT MENTIONED NO . NEW NUMBNESS OR PAIN PATTERNS NOT MENTIONED AND PERTINENT TO TODAY'S VISIT NO . CARDIOLOGY: NEW CHEST PRESSURE NO . NEW CHEST PAIN NO . RESPIRATORY: UNEXPLAINABLE COUGH NO . NEW SHORTNESS OF BREATH NO . VITAL SIGNS WT 172.0 LBS, HT 62 IN, BMI 31.46 INDEX, BP 136/91 MM HG, HR 79 /MIN, RR 18 /MIN, TEMP 97.0 F, OXYGEN SAT % 99%, NA INITIALS AW 0943. EXAMINATION GENERAL EXAMINATION: GENERALAWAKE,ALERT ,PLEASANT . PSYCHAFFECT NORMAL . LUNGS:LUNG MEADOWS ARE CLEAR TO AUSCULTATION BILATERALLY. GOOD MOVEMENT OF AIR . HEART:S1, S2 IN A REGULAR RATE AND RHYTHM. NO SIGNIFICANT MURMURS, RUBS OR GALLOPS NOTED . ASSESSMENTS OTHER CHRONIC PAIN - G89.29 (PRIMARY) SPONDYLOSIS WITHOUT MYELOPATHY OR RADICULOPATHY, THORACIC REGION - M47.814 TREATMENT OTHER CHRONIC PAIN PAIN PROCEDURE LOG2 DAYS OF IMPROVEMENT THEN PAIN ABRUPTLY RETURNED TO BASELINEDATE OF [id number]/01/20PROCEDURE:BILATERAL THERAPEUTIC THORACIC FACET BLOCK T9/T10, T10/[id number] OF PRE SEDATEVALIUM 10MG; HYDROCODONE/ACETAMINOPHEN 5/325MG NOTES: PATIENT HAS DECIDED TO CONTINUE MEDICINE MANAGEMENT TRIALS WITH [facility] NEUROLOGY. SHE WILL CONTACT US IF HER PAIN ESCALATES AND SHE WANTS TO CONSIDER DOING MORE INTERVENTIONAL PROCEDURES. . PROCEDURE CODES FA211 ESTABILISHED PATIENT [facility] CHARGE DISPOSITION & COMMUNICATION FOLLOW UP PT WILL CALL FOR F/U IF NEEDED (REASON: THORACIC BACK PAIN) ELECTRONICALLY SIGNED BY GEORGI SUNSHINE ON 06/15/2020 AT 10:20 AM EDT DISCLAIMER : THIS IS A VISIT SUMMARY EXTRACTED FROM THE [employer] CHART. IT IS NOT A COPY OF THE [employer] PROGRESS NOTE. DOUG
== END ==
LOC: M PAIN 09:45
PROVIDERS: ATTEND Nurse Practitioner Family
DX: M47.814 Spondylosis without myelopathy or radiculopathy, thoracic region (principal); G89.29 Other chronic pain; I10 Essential (primary) hypertension; Z79.899 Other long term (current) drug therapy

== ENCOUNTER → 2020-07-14 | Outpatient (CLI) | payer BC ==
--- NOTE | 2020-07-17 02:16 | ECWPNPC ---
PATIENT NAME: SISSY PIERRE : 1965 GENDER: FEMALE VISIT DATE: 07/14/2020 DISCHARGE DATE: 07/14/20 0954 VISIT LOCKED DATE TIME: PHYSICIAN: LICHA TREJO RESOURCE: LICHA TREJO REASON FOR APPOINTMENT 1. THORACIC BACK PAIN HISTORY OF PRESENT ILLNESS GENERAL: PATIENT CALLED TO BE SEEN AGAIN HERE DUE TO THE FACT THAT LYRICA THAT WAS HELPING HAD TO BE STOPPED DUE TO VISUAL CHANGES. SHE WOULD LIKE TO CONSIDER OPTIONS. HAS NOT HAD A STEROID DOSEPAK SINCE INJURY. SHE CAN'T TAKE NSAIDS DUE TO HAVING ONE KIDNEY. CONTINUES TO HAVE DAILY PAIN IN THE THORACIC AREA. -. FALL RISK SCREENING: SCREENING :NO FALLS REPORTED IN THE LAST YEAR PAIN SCREENING: PATIENT HAS A COMPLAINT OF ACUTE OR CHRONIC PAIN :YES LOCATION OF PAIN:MID BACK INTENSITY OF PAIN (SCALE OF 1 TO 10):2 WHAT DOES YOUR PAIN FEEL LIKE:ACHING DURATION:CONTINOUS, CONSTANT PAIN IS INCREASED BY:ACTIVITIES PAIN IS DECREASED BY:USE OF PAIN MEDICATIONS, OTHERS HEAT TREATMENT/MEDICATIONS USED TO MANAGE PAIN:OTC PAIN RELIEVERS, NSAIDS LEVEL OF RELIEF FROM PAIN TREATMENTS IN THE PAST:50% PAIN HAS INTERFERED WITH THE FOLLOWING:BATHING/DRESSING, EMPLOYMENT, HOUSEWORK, TRANSPORTATION, TOILETING NURSING NOTE: -. PAIN CENTER INTAKE QUESTIONS: DO YOU HAVE A HISTORY OF MRSA? :NO DO YOU TAKE A BLOOD THINNERS? :NO DO YOU HAVE ANY BLEEDING DISORDERS? :NO ANY NEW NUMBNESS OR WEAKNESS IN YOUR LEGS OR ARMS? :NO ANY PACEMAKER,DEFIBRILLATOR, OR DORSAL COLUMN STIMULATOR? :NO DO YOU HAVE ANY RASHES OR OPEN SORES? :NO ARE YOU ALLERGIC TO IV DYE? :NO ARE YOU DIABETIC? :NO ANY NEW PROBLEMS WITH YOUR MEDICATIONS? :NO HAVE YOU RECEIVED A VACCINE IN THE PAST 30 DAYS? :NO DO YOU PLAN TO RECEIVE A VACCINE IN THE NEXT 21 DAYS? :NO DO YOU NEED ANY PRESCRIPTION? :NO DO YOU TAKE ANY IMMUNOSUPPRESSIVE MEDICATIONS? :NO IS THERE A CHANCE YOU COULD BE ? :NO ARE YOU BREAST FEEDING? :NO CURRENT MEDICATIONS TAKING COLESEVELAM HCL 625 MG TABLET TAKE 3 TABLETS BY MOUTH TWICE DAILY ORAL TAKING HYDROCHLOROTHIAZIDE 25 MG TABLET TAKE 1 TABLET BY MOUTH ONCE DAILY ORAL TAKING ENALAPRIL MALEATE 5 MG TABLET TAKE 1 TABLET BY MOUTH ONCE DAILY ORAL TAKING GABAPENTIN 300 MG CAPSULE 1 CAPSULE ORALLY THREE TIME A DAY TAKING MULTIVITAMIN ADULT - TABLET DIRECTED ORALLY DAILY TAKING BENADRYL 25 MG TABLET 2 TABLETS ORALLY EVERY BEDTIME TAKING CYMBALTA 30 MG CAPSULE DELAYED RELEASE PARTICLES 1 CAPSULE ORALLY ONCE A DAY, NOTES: NOT SURE OF DOSE NOT-TAKING LYRICA 50 MG CAPSULE 1 CAPSULE ORALLY THREE TIMES DAILY NOT-TAKING FISH OIL 1200 MG CAPSULE 1 CAPSULE ORALLY ONCE A DAY NOT-TAKING CYCLOBENZAPRINE HCL 10 MG TABLET TAKE 1 TABLET BY MOUTH THREE TIMES DAILY NEEDED ORAL NOT-TAKING CALCIUM 600+D 600-400 MG-UNIT TABLET 1 TABLET WITH FOOD ORALLY ONCE A DAY NOT-TAKING ZYRTEC ALLERGY 10 MG TABLET 1 TABLET ORALLY ONCE A DAY NOT-TAKING ATORVASTATIN CALCIUM 40 MG TABLET TAKE 1 TABLET BY MOUTH ONCE DAILY ORAL NOT-TAKING ATENOLOL 50 50MG TABLET 1 1/2 TABLET ORAL ONCE A DAY NOT-TAKING DULOXETINE HCL 30 MG CAPSULE DELAYED RELEASE PARTICLES TAKE 1 CAPSULE BY MOUTH ONCE DAILY ORAL NOT-TAKING CLARITIN 10 MG TABLET 2 TABLETS ORALLY ONCE A DAY NOT-TAKING TRAMADOL HCL 50 MG TABLET (SCHEDULE IV DRUG) TAKE 1 TABLET BY MOUTH EVERY 6 HOURS NEEDED DIRECTED . DO NOT EXCEED 4 PER 24 HOURS ORAL MEDICATION LIST REVIEWED AND RECONCILED WITH THE PATIENT PAST MEDICAL HISTORY HYPERTENSION HYPERLIPIDEMIA STAGE THREE KIDNEY CANCER, LEFT, 09/2019, RENAL CELL CARCINOMA ALLERGIES N.K.D.A. SURGICAL HISTORY CHOLECYSTECTOMY HYSTERECTOMY, KEPT OVARIES 2001 RIGHT BREAST BIOPSY LEFT NEPHRECTOMY, STAGE 3 RENAL CANCER FAMILY HISTORY FATHER: ALIVE, IDDM, HX [place], CLL MOTHER: ALIVE, ASTHMA. NO OSTEOPOROSIS, NO FX 2 SISTER(S) - HEALTHY. 1DAUGHTER(S) - HEALTHY. DENIES FAMILY HX OF BREAST, COLON OR OVARIAN CANCER. SOCIAL HISTORY GENERAL: TOBACCO USE ARE YOU A:NONSMOKER LATEX QUESTIONNAIRE LATEX ALLERGY : HAVE YOU EVER DEVELOPED ANY TYPE OF REACTION AFTER HANDLING LATEX PRODUCTS SUCH RUBBER GLOVES, CONDOMS, DIAPHRAGMS, BALLOONS, SOCKS, OR UNDERWEAR?NO LATEX ALLERGY : HAVE YOU EVER DEVELOPED ANY TYPE OF REACTION DURING OR AFTER DENTAL APPOINTMENT, VAGINAL/RECTAL EXAMINATION, SURGICAL PROCEDURE, OR ANY OTHER EXPOSURE?NO DATE ASKED : 10/31/2019 LATEX RISK : HAVE YOU EVER HAD ANY DIFFICULTY BREATHING OR HIVES AFTER EATING OR HANDLING ANY FRUITS, OR VEGETABLES; SUCH KIWI, BANANAS, STONE FRUITS, OR CHESTNUTSNO LATEX RISK : DO YOU HAVE A PREVIOUS PERSONAL HISTORY OF MORE THAN NINE SURGERIES, SPINA BIFIDA, OR REPEATED CATHERIZATIONS? NO LATEX RISK : ARE YOU FREQUENTLY EXPOSED TO LATEX PRODUCTS IN YOUR OCCUPATION?NO BMI CARE GOAL FOLLOW-UP ABOVE NORMAL BMI FOLLOW-UPWEIGHT MONITORING ALCOHOL SCREENING DID YOU HAVE A DRINK CONTAINING ALCOHOL IN THE PAST YEAR?NO POINTS0 INTERPRETATIONNEGATIVE RECREATIONAL DRUG USE DENIES. CAFFEINE RARELY. SEXUAL HX HAD SEX IN THE LAST 12 MONTHS (VAGINAL, ORAL, OR ANAL)?YES WITHMEN ONLY LMP:HYSTER HAVE YOU EVER HAD AN STD?NO HIV / HEP-C SCREENING HIV TEST OFFERED TO PATIENT:YES DATE OFFERED:03/19/2019 TEST ACCEPTED:NO REASON:PATIENT DECLINED BROCHURE PROVIDED TO PATIENTNO LANGUAGE LANGUAGES SPOKEN:SAMI LEARNING BARRIERS / SPECIAL NEEDS CHANGE FROM LAST VISIT?NO 10/31/2019 BARRIERS TO LEARNING?NO HEARING IMPAIRED?NO VISION IMPAIRED?YES COGNITIVELY IMPAIRED?NO :CORRECTIVE LENSES READINESS TO LEARN?YES LEARNING PREFERENCES?NO LEARNING CAPABILITIES PRESENT?YES EMOTIONAL BARRIERS?NO SPECIAL DEVICES?NO DOMESTIC VIOLENCE DENIES. OCCUPATION: [employer]. DIET: REGULAR. EXERCISE: CARDIO 3 TIMES A WEEK. MARITAL STATUS: SINGLE. OTHERS AT HOME: MOTHER,FIANCE. PAIN CLINIC PFS, CLERGY, PUBLIC HEALTH REFERRALS HAS THE PATIENT BEEN EDUCATED REGARDING HIS/HER PLAN OF CARE?YES HAS THE PATIENT BEEN EDUCATED REGARDING PAIN, THE RISK FOR PAIN, THE IMPORTANCE OF EFFECTIVE PAIN MANAGEMENT, AND THE PAIN ASSESSMENT PROCESS?YES ADVANCE DIRECTIVE ADVANCE DIRECTIVE DISCUSSED WITH PATIENT:YES DECLINED AND DECLINED PAPERWORK HOSPITALIZATION/MAJOR DIAGNOSTIC PROCEDURE CHILDBIRTH SURGERIES REVIEW OF SYSTEMS CONSTITUTIONAL: ANY RECENT FEVER NO . CHILLS NO . WEIGHT CHANGE OF UNKNOWN REASONS NO . GASTROENTEROLOGY: NEW UNEXPLAINABLE CHANGES IN BOWEL CONTROL NO . CONSTIPATION NO . GENITOURINARY: ANY NEW CHANGE IN BLADDER CONTROL? NO . NEUROLOGY: NEW ONSET DIZZINESS OR NEUROLOGICAL CHANGES NOT MENTIONED NO . NEW NUMBNESS OR PAIN PATTERNS NOT MENTIONED AND PERTINENT TO TODAY'S VISIT NO . CARDIOLOGY: NEW CHEST PRESSURE NO . NEW CHEST PAIN NO . RESPIRATORY: UNEXPLAINABLE COUGH NO . NEW SHORTNESS OF BREATH NO . VITAL SIGNS WT 168.8 LBS, HT 62 IN, BMI 30.87 INDEX, BP 145/92 MM HG, HR 72 /MIN, RR 18 /MIN, TEMP 97.8 F, OXYGEN SAT % 99%, SAFE IN ENV? (Y/N) Y, NA INITIALS SD 09:16, REVIEWED BY: EM. EXAMINATION GENERAL EXAMINATION: GENERALAWAKE,ALERT ,PLEASANT . PSYCHAFFECT NORMAL . LUNGS:LUNG MEADOWS ARE CLEAR TO AUSCULTATION BILATERALLY. GOOD MOVEMENT OF AIR . HEART:S1, S2 IN A REGULAR RATE AND RHYTHM. NO SIGNIFICANT MURMURS, RUBS OR GALLOPS NOTED . ASSESSMENTS OTHER CHRONIC PAIN - G89.29 (PRIMARY) SPONDYLOSIS WITHOUT MYELOPATHY OR RADICULOPATHY, THORACIC REGION - M47.814 TREATMENT OTHER CHRONIC PAIN START METHYLPREDNISOLONE TABLET THERAPY PACK, 4 MG, DIRECTED, ORALLY, NDIRECTED, 21 DAY(S), 1, REFILLS 0 PROCEDURE CODES FA211 ESTABILISHED PATIENT [facility] CHARGE DISPOSITION & COMMUNICATION FOLLOW UP 6 WEEKS (REASON: THORACIC BACK PAIN AFTER MEDROL PACK) ELECTRONICALLY SIGNED BY GEORGI SUNSHINE ON 07/16/2020 AT 01:55 PM EST DISCLAIMER : THIS IS A VISIT SUMMARY EXTRACTED FROM THE [employer] CHART. IT IS NOT A COPY OF THE [employer] PROGRESS NOTE. DOUG
== END ==
LOC: M PAIN 09:15
PROVIDERS: ATTEND Nurse Practitioner Family
DX: G89.29 Other chronic pain (principal); M47.814 Spondylosis without myelopathy or radiculopathy, thoracic region; I10 Essential (primary) hypertension; E78.5 Hyperlipidemia, unspecified; Z85.528 Personal history of other malignant neoplasm of kidney; Z79.899 Other long term (current) drug therapy

== ENCOUNTER → 2020-09-28 | Outpatient (CLI) | payer BC ==
[~2020-09-28] MED LIST changes: +HYDR-3490 PO; -HYDR25TAB PO
[2020-09-28 11:05] LABS: CALCIUM LEVEL 9.7 MG/DL (8.5-10.1); CREATININE FOR GFR 1.32 MG/DL (0.55-1.30); GLOMERULAR FILTRATION RATE 44.6 (>51); POTASSIUM SERUM 3.9 MEQ/L (3.5-5.1)
--- NOTE | 2020-09-28 12:55 | REP ---
INDICATION: MALIGNANT NEOPLASM OF LEFT KIDNEY, EXCEPT RENAL PELVIS COMPARISON: 05/27/2020 TECHNIQUE: PA and lateral. FINDINGS: The mediastinum and cardiac silhouette are normal. The lung lucas demonstrate chronic appearing changes primarily involving the left base without acute consolidation, effusion, or pneumothorax. The skeletal structures are intact and normal. IMPRESSION: No definite acute consolidation. Chronic changes suspected at the bilateral bases (left greater than right). <Electronically signed by Silvio Truong > 09/28/20 [id number]
== END ==
LOC: M WUC 08:27
PROVIDERS: ATTEND Urology
DX: C64.2 Malignant neoplasm of left kidney, except renal pelvis (principal)

== ENCOUNTER → 2020-10-04 | Outpatient (CLI) | payer BC ==
[2020-10-04 12:30] LABS: CALCIUM LEVEL 9.8 MG/DL (8.5-10.1); CREATININE FOR GFR 1.45 MG/DL (0.55-1.30); GLOMERULAR FILTRATION RATE 40.1 (>51); POTASSIUM SERUM 3.7 MEQ/L (3.5-5.1)
== END ==
LOC: M WUC 08:03
PROVIDERS: ATTEND Urology
DX: C64.2 Malignant neoplasm of left kidney, except renal pelvis (principal)

== ENCOUNTER → 2021-03-21 | Outpatient (REF) | payer BC ==
[~2021-03-21] MED LIST changes: +GABA-283 PO; -GABA-845 PO
== END ==
LOC: M LAB REF 17:16
PROVIDERS: ATTEND Internal Medicine Nephrology
DX: N18.32 Chronic kidney disease, stage 3b (principal)

== ENCOUNTER → 2021-04-07 | Outpatient (CLI) | payer BC ==
--- NOTE | 2021-04-07 11:39 | REP ---
INDICATION: C64.2 MALIGANT NEOPLASM OF LEFT KIDNEY, EXCEPT RENAL PELVIS. COMPARISON: 09/28/2020 TECHNIQUE: PA and lateral views FINDINGS: The lungs are clear. The heart is not enlarged. There is no failure. The mediastinum, pleural surfaces unremarkable. Minimal midthoracic compression fractures and spondylosis unchanged compared with the previous study. IMPRESSION: No active process. No interval change. <Electronically signed by Jared Hernandez > 04/07/21 [id number]
== END ==
LOC: M WUC 10:53
PROVIDERS: ATTEND Urology
DX: C64.2 Malignant neoplasm of left kidney, except renal pelvis (principal)

== ENCOUNTER → 2021-09-14 | Outpatient (CLI) | payer BC ==
[2021-09-14 15:48] LABS: CALCIUM LEVEL 9.8 MG/DL (8.5-10.1); CREATININE FOR GFR 1.18 MG/DL (0.55-1.30); GLOMERULAR FILTRATION RATE 50.6 (>51); POTASSIUM SERUM 3.8 MEQ/L (3.5-5.1)
== END ==
LOC: M WUC 08:07
PROVIDERS: ATTEND Urology
DX: C64.2 Malignant neoplasm of left kidney, except renal pelvis (principal)

== ENCOUNTER → 2021-11-07 | Outpatient (CLI) | payer BC | LOC: M PLAIMG 07:55 | PROVIDERS: ATTEND Urology | DX: R61 Generalized hyperhidrosis (principal); J84.10 Pulmonary fibrosis, unspecified; R91.1 Solitary pulmonary nodule; Z90.49 Acquired absence of other specified parts of digestive tract ==

== ENCOUNTER → 2021-11-11 | Outpatient (CLI) | payer BC | LOC: M WHC 14:21 | PROVIDERS: ATTEND Advanced Practice Midwife | DX: Z12.31 Encounter for screening mammogram for malignant neoplasm of breast (principal) ==

== ENCOUNTER → 2021-11-11 | Outpatient (REF) | payer BC | LOC: M SFHCWAGY 17:38 | PROVIDERS: ATTEND Advanced Practice Midwife | DX: Z12.72 Encounter for screening for malignant neoplasm of vagina (principal); N95.2 Postmenopausal atrophic vaginitis ==

== ENCOUNTER → 2021-12-19 | Outpatient (CLI) | payer BC ==
[~2021-12-19] MED LIST changes: +NOXI1TAB PO
== END ==
LOC: M RAD 11:34
PROVIDERS: ATTEND Specialist
DX: C64.9 Malignant neoplasm of unspecified kidney, except renal pelvis (principal); Z90.5 Acquired absence of kidney; R93.6 Abnormal findings on diagnostic imaging of limbs
CPT/HCPCS: 78306; A9503

== ENCOUNTER → 2022-02-02 | Outpatient (CLI) | payer BC | LOC: M PAIN 09:00 | PROVIDERS: ATTEND Anesthesiology | DX: M79.10 Myalgia, unspecified site (principal); R51.9 Headache, unspecified; I12.9 Hypertensive chronic kidney disease with stage 1 through stage 4 chronic kidney disease, or unspecified chronic kidney disease; E78.5 Hyperlipidemia, unspecified; N18.9 Chronic kidney disease, unspecified; Z79.899 Other long term (current) drug therapy ==

== ENCOUNTER 2022-03-01 16:35 | Emergency (ER) | payer BC ==
[~2022-03-01] VITALS: Ht 157.5 cm; Wt 74.3 kg
[2022-03-01] MEDS ORDERED: LIDO1PAD (16:49)
[2022-03-01] MEDS ORDERED: diazePAM 5MG TABLET PO ONE (19:30)
[2022-03-01 20:55] LABS: BASO # 0.1 10^3/uL (0.0-0.2); BASO % 0.6 % (0.0-1.0); EOS # 0.4 10^3/uL (0.0-0.5); EOS % 4.5 % (0.0-3.0); HEMATOCRIT 38.7 % (36.0-47.0); HEMOGLOBIN 13.6 g/dl (12.0-15.5); LYMPH # 3.3 10^3/uL (1.5-5.0); LYMPH % 40.7 % (24.0-44.0); MEAN CORPUSCULAR HEMOGLOBIN 30.6 pg (27.0-33.0); MEAN CORPUSCULAR HGB CONC 35.1 g/dl (32.0-36.5); MONO # 0.5 10^3/uL (0.0-0.8); MONO % 6.6 % (2.0-8.0); NEUTROPHILS # 3.8 10^3/uL (1.5-8.5); NEUTROPHILS % 47.3 % (36.0-66.0); PLATELET COUNT, AUTOMATED 307 10^3/uL (150-450); RED BLOOD COUNT 4.45 10^6/uL (4.00-5.40)
[2022-03-01 21:07] LABS: CALCIUM LEVEL 9.4 MG/DL (8.5-10.1); CREATININE FOR GFR 1.19 MG/DL (0.55-1.30); GLOMERULAR FILTRATION RATE 50.1 (>51); POTASSIUM SERUM 3.7 MEQ/L (3.5-5.1)
[2022-03-01 21:11] LABS: CK-MB VALUE MASS 1.3 NG/ML (<3.6); MB/CK RELATIVE INDEX 0.68 (< OR =4)
[2022-03-01] MEDS ORDERED: KETOROLAC 30 MG/ML 1ML VIAL IV ONE (21:45)
[2022-03-01] MEDS ORDERED: GABAPENTIN 100 MG CAP PO ONE (22:10)
[2022-03-01 22:22] VITALS: BP 165/100
[2022-03-01] MEDS ORDERED: CYCL5TAB PO (22:47)
== END 2022-03-01 23:05 | disposition home or self-care (01) ==
LOC: M ED 16:35
DX: M79.622 Pain in left upper arm (principal); R20.2 Paresthesia of skin; I10 Essential (primary) hypertension; M50.93 Cervical disc disorder, unspecified, cervicothoracic region; M54.9 Dorsalgia, unspecified; N18.30 Chronic kidney disease, stage 3 unspecified; Z90.5 Acquired absence of kidney; Z85.528 Personal history of other malignant neoplasm of kidney; Z79.899 Other long term (current) drug therapy
CPT/HCPCS: 71046; 73030; 80048; 82550; 82553; 85025; 93005; 96374; 99284; J1885

== ENCOUNTER → 2022-05-04 | Outpatient (CLI) | payer BC ==
[~2022-05-04] MED LIST changes: +COLE625T17 PO; -COLE625TAB PO; +CYCL5TAB PO; +LIDO1PAD
== END ==
LOC: M WUC 15:34
PROVIDERS: ATTEND Registered Nurse
DX: R05.9 Cough, unspecified (principal)

== ENCOUNTER → 2022-07-06 | Outpatient (CLI) | payer BC | LOC: M LABSMTC 11:14 | PROVIDERS: ATTEND Anesthesiology | DX: Z01.812 Encounter for preprocedural laboratory examination (principal); Z11.52 Encounter for screening for COVID-19 ==

== ENCOUNTER 2022-07-10 18:01 | Emergency (ER) | payer BC ==
[~2022-07-10 18:01] MED LIST changes: -BUPIVACAINE HCL 0.25% 10ML VIAL As Ordered ONE; -BUPIVACAINE HCL 0.25% 30ML VIAL As Ordered ONE
[2022-07-10] MEDS ORDERED: ENALAPRIL MALEATE 5 MG TAB PO ONE (18:20)
[2022-07-10] MEDS ORDERED: PILL CUTTER 1 EACH XX PRN (18:40)
[2022-07-10] MEDS ORDERED: ENALAPRIL MALEATE 10 MG TAB PO ONE (18:40)
[2022-07-10 19:00] VITALS: BP 175/108
[2022-07-10 19:01] LABS: BASO # 0.1 10^3/uL (0.0-0.2); BASO % 0.6 % (0.0-1.0); EOS # 0.3 10^3/uL (0.0-0.5); EOS % 3.5 % (0.0-3.0); HEMATOCRIT 40.9 % (36.0-47.0); LYMPH # 3.3 10^3/uL (1.5-5.0); LYMPH % 39.2 % (24.0-44.0); MEAN CORPUSCULAR HEMOGLOBIN 30.4 pg (27.0-33.0); MEAN CORPUSCULAR HGB CONC 34.2 g/dl (32.0-36.5); MEAN CORPUSCULAR VOLUME 88.9 fl (80.0-96.0); MONO # 0.6 10^3/uL (0.0-0.8); MONO % 6.7 % (2.0-8.0); NEUTROPHILS # 4.1 10^3/uL (1.5-8.5); NEUTROPHILS % 49.6 % (36.0-66.0); PLATELET COUNT, AUTOMATED 336 10^3/uL (150-450); WHITE BLOOD COUNT 8.3 10^3/uL (4.0-10.0)
[2022-07-10 19:17] LABS: CALCIUM LEVEL 9.4 MG/DL (8.5-10.1); CREATININE FOR GFR 1.11 MG/DL (0.55-1.30); GLOMERULAR FILTRATION RATE 54.1 (>51); POTASSIUM SERUM 3.7 MEQ/L (3.5-5.1)
[2022-07-10 21:45] VITALS: BP 130/91
== END 2022-07-10 21:57 | disposition home or self-care (01) ==
LOC: M ED 18:01
DX: R29.810 Facial weakness (principal); M26.602 Left temporomandibular joint disorder, unspecified; I10 Essential (primary) hypertension; Z79.899 Other long term (current) drug therapy

== ENCOUNTER → 2022-07-10 | Outpatient (CLI) | payer BC ==
[~2022-07-10] MED LIST changes: +BUPIVACAINE HCL 0.25% 10ML VIAL As Ordered ONE; +BUPIVACAINE HCL 0.25% 30ML VIAL As Ordered ONE
== END ==
LOC: M PAIN 15:00
PROVIDERS: ATTEND Anesthesiology
DX: M79.18 Myalgia, other site (principal); I12.9 Hypertensive chronic kidney disease with stage 1 through stage 4 chronic kidney disease, or unspecified chronic kidney disease; N18.9 Chronic kidney disease, unspecified; E78.5 Hyperlipidemia, unspecified; Z85.528 Personal history of other malignant neoplasm of kidney; Z79.899 Other long term (current) drug therapy

== ENCOUNTER → 2022-07-18 | Outpatient (CLI) | payer BC ==
[~2022-07-18] MED LIST changes: +ISOVUE-370 76% 100ML VIAL As Ordered ONE
== END ==
LOC: M RAD 11:02
PROVIDERS: ATTEND Urology
DX: Z90.5 Acquired absence of kidney (principal); Z85.528 Personal history of other malignant neoplasm of kidney

== ENCOUNTER → 2023-01-16 | Outpatient (CLI) | payer BC ==
[~2023-01-16] MED LIST changes: +ENAL1TAB48 PO; -ENAL5TA PO; -ISOVUE-370 76% 100ML VIAL As Ordered ONE
== END ==
LOC: M WUC 08:02
PROVIDERS: ATTEND Urology
DX: C64.2 Malignant neoplasm of left kidney, except renal pelvis (principal); R91.8 Other nonspecific abnormal finding of lung field

== ENCOUNTER → 2023-02-09 | Outpatient (REF) | payer BC ==
[2023-02-09 17:31] LABS: BASO # 0.1 10^3/uL (0.0-0.2); BASO % 0.9 % (0.0-1.0); EOS # 0.2 10^3/uL (0.0-0.5); EOS % 2.3 % (0.0-3.0); HEMATOCRIT 42.4 % (36.0-47.0); HEMOGLOBIN 13.9 g/dl (12.0-15.5); LYMPH # 2.1 10^3/uL (1.5-5.0); LYMPH % 31.2 % (24.0-44.0); MEAN CORPUSCULAR HEMOGLOBIN 30.1 pg (27.0-33.0); MEAN CORPUSCULAR HGB CONC 32.8 g/dl (32.0-36.5); MEAN CORPUSCULAR VOLUME 91.8 fl (80.0-96.0); MONO # 0.5 10^3/uL (0.0-0.8); MONO % 7.1 % (2.0-8.0); NEUTROPHILS # 3.8 10^3/uL (1.5-8.5); NEUTROPHILS % 58.2 % (36.0-66.0); PLATELET COUNT, AUTOMATED 331 10^3/uL (150-450); RED BLOOD COUNT 4.62 10^6/uL (4.00-5.40); WHITE BLOOD COUNT 6.6 10^3/uL (4.0-10.0)
[2023-02-09 17:51] LABS: ALBUMIN 4.3 G/DL (3.2-5.2); BILIRUBIN,TOTAL 0.5 MG/DL (0.3-1.2); CHOLESTEROL RISK RATIO 4.89 (<5); CREATININE FOR GFR 1.06 MG/DL (0.55-1.30); GLOMERULAR FILTRATION RATE 57.1 (>51); HDL CHOLESTEROL 43.7 MG/DL (>40); LDL CHOLESTEROL 130.7 MG/DL (<100); NON-HDL-C 170.3 MG/DL; TOTAL PROTEIN 6.8 G/DL (5.7-8.2)
== END ==
LOC: M LAB REF 16:52
PROVIDERS: ATTEND Physician Assistant Medical
DX: I12.9 Hypertensive chronic kidney disease with stage 1 through stage 4 chronic kidney disease, or unspecified chronic kidney disease (principal); E87.6 Hypokalemia; E78.5 Hyperlipidemia, unspecified

== ENCOUNTER → 2023-07-25 | Outpatient (CLI) | payer BC ==
[~2023-07-25] MED LIST changes: -GABA-283 PO; +GABA-284 PO
== END ==
LOC: M WHC 08:13
PROVIDERS: ATTEND Advanced Practice Midwife
DX: Z12.31 Encounter for screening mammogram for malignant neoplasm of breast (principal); R92.323 Mammographic fibroglandular density, bilateral breasts

== ENCOUNTER → 2023-08-01 | Outpatient (CLI) | payer BC ==
[2023-08-01 10:27] LABS: CALCIUM LEVEL 9.4 MG/DL (8.5-10.1); CREATININE FOR GFR 1.18 MG/DL (0.55-1.30); GLOMERULAR FILTRATION RATE 50.3 (>51); POTASSIUM SERUM 3.9 MMOL/L (3.5-5.1)
== END ==
LOC: M WUC 08:04
PROVIDERS: ATTEND Urology
DX: C64.2 Malignant neoplasm of left kidney, except renal pelvis (principal)

== ENCOUNTER → 2023-08-02 | Outpatient (CLI) | payer BC ==
[~2023-08-02] MED LIST changes: +ISOVUE-370 76% 100ML VIAL As Ordered ONE
== END ==
LOC: M RAD 13:49
PROVIDERS: ATTEND Urology
DX: C64.2 Malignant neoplasm of left kidney, except renal pelvis (principal); Z90.49 Acquired absence of other specified parts of digestive tract; Z90.5 Acquired absence of kidney
CPT/HCPCS: 74177; Q9967

== ENCOUNTER → 2023-08-13 | Outpatient (REF) | payer BC ==
[~2023-08-13] MED LIST changes: -ISOVUE-370 76% 100ML VIAL As Ordered ONE
[2023-08-13 12:49] LABS: BASO # 0.1 10^3/uL (0.0-0.2); BASO % 0.8 % (0.0-1.0); EOS # 0.2 10^3/uL (0.0-0.5); EOS % 3.1 % (0.0-3.0); HEMATOCRIT 42.2 % (36.0-47.0); HEMOGLOBIN 14.5 g/dl (12.0-15.5); LYMPH # 2.3 10^3/uL (1.5-5.0); LYMPH % 29.8 % (24.0-44.0); MEAN CORPUSCULAR HEMOGLOBIN 30.3 pg (27.0-33.0); MEAN CORPUSCULAR HGB CONC 34.4 g/dl (32.0-36.5); MEAN CORPUSCULAR VOLUME 88.3 fl (80.0-96.0); MONO # 0.5 10^3/uL (0.0-0.8); MONO % 6.7 % (2.0-8.0); NEUTROPHILS # 4.5 10^3/uL (1.5-8.5); NEUTROPHILS % 58.9 % (36.0-66.0); PLATELET COUNT, AUTOMATED 349 10^3/uL (150-450); RED BLOOD COUNT 4.78 10^6/uL (4.00-5.40); WHITE BLOOD COUNT 7.6 10^3/uL (4.0-10.0)
[2023-08-13 13:24] LABS: ALBUMIN 4.1 G/DL (3.2-5.2); BILIRUBIN,TOTAL 0.3 MG/DL (0.3-1.2); CALCIUM LEVEL 10.2 MG/DL (8.5-10.1); CREATININE FOR GFR 1.05 MG/DL (0.55-1.30); GLOMERULAR FILTRATION RATE 57.5 (>51); POTASSIUM SERUM 4.1 MMOL/L (3.5-5.1); TOTAL PROTEIN 7.1 G/DL (5.7-8.2)
[2023-08-13 13:26] LABS: THYROID STIMULATING HORMONE 2.174 uIU/ML (0.55-4.78)
== END ==
LOC: M LAB REF 11:51
PROVIDERS: ATTEND Physician Assistant Medical
DX: I12.9 Hypertensive chronic kidney disease with stage 1 through stage 4 chronic kidney disease, or unspecified chronic kidney disease (principal); E78.5 Hyperlipidemia, unspecified; N18.30 Chronic kidney disease, stage 3 unspecified

== ENCOUNTER → 2024-02-13 | Outpatient (REF) | payer BC ==
[2024-02-13 13:28] LABS: HEMATOCRIT 44.3 % (36.0-47.0); HEMOGLOBIN 14.8 g/dl (12.0-15.5); MEAN CORPUSCULAR HEMOGLOBIN 30.1 pg (27.0-33.0); MEAN CORPUSCULAR HGB CONC 33.4 g/dl (32.0-36.5); MEAN CORPUSCULAR VOLUME 90.2 fl (80.0-96.0); PLATELET COUNT, AUTOMATED 365 10^3/uL (150-450); RED BLOOD COUNT 4.91 10^6/uL (4.00-5.40); WHITE BLOOD COUNT 7.6 10^3/uL (4.0-10.0)
[2024-02-13 13:46] LABS: ALBUMIN 4.2 G/DL (3.2-5.2); BILIRUBIN,TOTAL 0.6 MG/DL (0.3-1.2); CALCIUM LEVEL 10.1 MG/DL (8.5-10.1); CHOLESTEROL RISK RATIO 6.24 (<5); CREATININE FOR GFR 1.27 MG/DL (0.55-1.30); GLOMERULAR FILTRATION RATE 46.2 (>51); HDL CHOLESTEROL 41.5 MG/DL (>40); LDL CHOLESTEROL 164.7 MG/DL (<100); NON-HDL-C 217.5 MG/DL; POTASSIUM SERUM 3.8 MMOL/L (3.5-5.1); TOTAL PROTEIN 7.3 G/DL (5.7-8.2)
== END ==
LOC: M LAB REF 12:09
PROVIDERS: ATTEND Physician Assistant Medical
DX: I12.9 Hypertensive chronic kidney disease with stage 1 through stage 4 chronic kidney disease, or unspecified chronic kidney disease (principal); E78.5 Hyperlipidemia, unspecified; R53.83 Other fatigue

== ENCOUNTER → 2024-09-25 | Outpatient (CLI) | payer BC ==
[~2024-09-25] MED LIST changes: -CYCL5TAB PO; +CYCL5TAB4 PO
== END ==
LOC: M PLAIMG 12:40
PROVIDERS: ATTEND Urology
DX: C64.2 Malignant neoplasm of left kidney, except renal pelvis (principal); J98.11 Atelectasis

== ENCOUNTER → 2024-09-25 | Outpatient (CLI) | payer BC | LOC: M WHC 12:17 | PROVIDERS: ATTEND Urology | DX: C64.2 Malignant neoplasm of left kidney, except renal pelvis (principal); Z90.5 Acquired absence of kidney ==

== ENCOUNTER → 2025-01-01 | Outpatient (CLI) | payer BC | LOC: M WHC 09:00 | PROVIDERS: ATTEND Advanced Practice Midwife | DX: Z12.31 Encounter for screening mammogram for malignant neoplasm of breast (principal); R92.323 Mammographic fibroglandular density, bilateral breasts ==

== ENCOUNTER → 2025-01-02 | Outpatient (REF) | payer BC | LOC: M PLALAB 11:43 | PROVIDERS: ATTEND Advanced Practice Midwife | DX: L98.9 Disorder of the skin and subcutaneous tissue, unspecified (principal); L29.2 Pruritus vulvae ==

== ENCOUNTER 2025-03-19 08:13 | Emergency (ER) | payer BC ==
[~2025-03-19] VITALS: Ht 157.5 cm; Wt 82.7 kg
[2025-03-19] MEDS: ACETAMINOPHEN 500 MG TAB PO ONE (09:10)
[2025-03-19] MEDS: LIDOCAINE 5% PATCH TD ONE (09:12)
[2025-03-19] MEDS ORDERED: MEDR4PAK PO (11:30)
[2025-03-19] MEDS ORDERED: METH-1165 PO (11:30)
[2025-03-19 12:05] VITALS: BP 130/79; TEMP 98.5; O2SAT 97
== END 2025-03-19 12:11 | disposition home or self-care (01) ==
LOC: EDBD 08:13 → M ED 08:13
DX: M54.50 Low back pain, unspecified (principal); I10 Essential (primary) hypertension; Z90.5 Acquired absence of kidney; Z79.899 Other long term (current) drug therapy
CPT/HCPCS: 72131; 96372; 99284; J2919